=== PATIENT | male | born 1940 | race Caucasian/White ===

== ENCOUNTER 2017-02-18 16:50 | Inpatient (IN) | payer MEDICARE ==
[~2017-02-18] VITALS: Ht 177.8 cm; Wt 114.8 kg
[~2017-02-18 16:50] MED LIST: NORC10TA2 PO; RIVA10 PO; Z.0.WALKERFRONT
[2017-02-18 16:54] VITALS: BP 147/86; PULSE 62; RESP 17; TEMP 98.3; O2SAT 97
[2017-02-18] MEDS ORDERED: FURO20TA PO (17:18)
[2017-02-18] MEDS ORDERED: ASPI325T PO (17:18)
[2017-02-18] MEDS ORDERED: VENTAER INH (17:18)
[2017-02-18] MEDS ORDERED: SODIUM CHLOR 0.9% 1000 ML INJ 1,000 ML IV ONE (17:22)
[2017-02-18 17:24] VITALS: O2SAT 97
--- NOTE | 2017-02-18 17:29 | PD ---
HPI Chief Complaint: Dizziness Time Seen by Provider: 17:01 Travel History International Travel<30 days: No Contact w/Intl Traveler<30days: No Traveled to known affect area: No History of Present Illness HPI 76-year-old male came to the emergency room brought by his after he started experiencing some dizziness around 3 PM. He says he was watching television and got up to get some water when he felt very wobbly walking. His came around 4 PM and he continued to feel the same way and decided to come to the emergency room. Patient usually walks with a cane but he was having trouble walking with cane because of this. He felt like he was on a rocking boat. Patient did not have any syncopal episode or head injury. He has history of atrial fibrillation and takes 1 baby aspirin every day. No speech issue. [facility] Past Medical History Narrative Medical List of his past medical, surgical, social and family history was reviewed from the nursing note. Arthritis: No Asthma: No Autoimmune Disease: No Blood Disorders: No Anxiety: No Depression: No Heart Rhythm Problems: No Cancer: No Cardiovascular Problems: Yes (ARIAL FIBRILLATION) High Cholesterol: No Chemotherapy: No Chest Pain: No Congestive Heart Failure: No COPD: Yes Cerebrovascular Accident: No Diabetes: No Diminished Hearing: No Endocrine: No GERD: No Glaucoma: No Genitourinary: No Headaches: No Hepatitis: No Hiatal Hernia: No Hypertension: No Immune Disorder: No Kidney Stones: No Musculoskeletal: No Neurologic: Yes (CONCUSSIONS X 2 OCCURRED TEENAGER - NO RESIDUAL PROBLEMS) Psychiatric: No Reproductive: Yes (ENLARGED PROSTATE - ) Respiratory: Yes (COPD) Immunizations Current: Yes Migraines: No Myocardial Infarction: No Radiation Therapy: No Renal Failure: No Seizures: No Sickle Cell Disease: No Thyroid Disease: No Ulcer: No Tetanus Vaccination: < 5 Years Influenza Vaccination: Yes Past Surgical History Abdominal Surgery: No AICD: No Appendectomy: No Arteriovenous Shunt: No Body Medical Devices: NONE Cardiac Surgery: No Cholecystectomy: No Ear Surgery: No Endocrine Surgery: No Eye Surgery: Yes (LEWIS LASER TREATMENT FOR RETINOPATHY ) Genitourinary Surgery: No Gynecologic Surgery: No Insulin Pump: No Joint Replacement: No Oral Surgery: Yes (TONSILLECTOMY AGE 4 ) Pacemaker: No Thoracic Surgery: No Tonsillectomy: Yes Social History Alcohol Use: Yes (1-2 GLASSES PER DAY) Tobacco Use: No Substance Use: Yes (ETOH till 3 years ago) Allergies-Medications (Allergen,Severity, Reaction): Coded Allergies: No Known Allergies (Verified , 02/18/17) Comments No known drug allergies. Reported Meds & Prescriptions Reported Meds & Active Scripts Active Reported Ventolin Hfa 18 GM Inh (Albuterol Sulfate) 90 Mcg/Act Aer 2 Puff INH Q4-6H PRN Furosemide 20 Mg Tab 20 Mg PO DAILY Narrative Medication List of his home medications reviewed from the nursing note. Review of Systems Except as stated in HPI: all other systems reviewed are Neg Physical Exam Narrative GENERAL: Awake, alert, SKIN: Focused skin assessment warm/dry. HEAD: Atraumatic. Normocephalic. EYES: Pupils equal and round. No scleral icterus. No injection or drainage. ENT: No nasal bleeding or discharge. Mucous membranes pink and moist. NECK: Trachea midline. No JVD. CARDIOVASCULAR: Regular rate and rhythm. No murmur appreciated. RESPIRATORY: No accessory muscle use. Clear to auscultation. Breath sounds equal bilaterally. GASTROINTESTINAL: Abdomen soft, non-tender, nondistended. Hepatic and splenic margins not palpable. MUSCULOSKELETAL: No obvious deformities. No clubbing. No cyanosis. No edema. NEUROLOGICAL: Awake and alert. No obvious cranial nerve deficits. Normal speech. NIH stroke score of 2 based on the ataxia of the left upper and lower extremity. PSYCHIATRIC: Appropriate mood and affect; insight and judgment normal. Data Data Last Documented VS Vital Signs Date Time Temp Pulse Resp B/P Pulse Ox O2 Delivery O2 Flow Rate FiO2 02/18/17 17:39 16 96 Room Air 02/18/17 17:24 21 02/18/17 16:54 98.3 62 147/86 Orders Cath For Specimen (02/18/17 17:22) Neuro Checks Q2HX12,Q4H (02/18/17 17:22) Nursing Bedside Swallow Assess .ONCE (02/18/17 17:22) Diet Npo (02/18/17 Dinner) Prothrombin Time / Inr (Pt) (02/18/17 17:22) Act Partial Throm Time (Ptt) (02/18/17 17:22) Complete Blood Count With Diff (02/18/17 17:22) Basic Metabolic Panel (Bmp) (02/18/17 17:22) Fibrinogen (02/18/17 17:22) Creatine Kinase (Cpk) (02/18/17 17:22) Troponin I (02/18/17 17:22) Ua Includes Microscopic (02/18/17 17:22) Drug Screen, Random Urine (02/18/17 17:22) Type And Screen (02/18/17 17:22) Ct Brain W/O Iv Contrast(Rout) (02/18/17 ) Electrocardiogram (02/18/17 ) Consult Neurology (02/18/17 17:22) Sodium Chlor 0.9% 1000 Ml Inj (Ns 1000 M (02/18/17 17:22) Blood Glucose (02/18/17 17:22) Ecg Monitoring (02/18/17:22) Iv Access Insert/Monitor (02/18/17:) NPO (02/18/17 17:22) Oximetry (02/18/17 17:22) Oxygen Administration (02/18/17:) Resp Oxygen Alexander C Titrat 1-4 L (02/18/17 17:22) ^ Call Pharmacy (02/18/17 17:40) Nih Stroke Scale - Nihss .ONCE (02/18/17 17:40) Urinary Catheter Management EVA.Q8H (02/18/17 17:40) Urinary Catheter Insert/Apply (02/18/17 17:40) Anticoagulant Alert (02/18/17 17:40) ^ Post Infusion Restrictions (02/18/17 17:40) ^ Medication Alert (02/18/17 17:40) Vital Signs (Adult) .As directed (02/18/17 17:40) Notify Dr: Blood Pressure (02/18/17 17:40) ^ Medication Alert (02/18/17 17:40) Alteplase Bolus (Activase Bolus) (02/18/17 17:45) Alteplase Drip (Activase Drip) (02/18/17 17:45) Sodium Chloride 0.9% Inj (Ns Inj) (02/18/17 17:45) Misc Nursing Information (02/18/17 17:45) Resp Oxygen Alexander C Titrat 1-4 L (02/18/17 ) Lipid Profile (02/18/17 18:21) (Hub Use Only)Inp Phy Cons/Ref (02/18/17 ) Admit Order (Ed Use Only) (02/18/17 18:38) Us Carotid Arteries Comp Bilat (02/19/17 ) Labs Laboratory Tests Test 02/18/17 02/18/17 17:40 18:15 White Blood Count 6.1 TH/MM3 Red Blood Count 5.70 MIL/MM3 Hemoglobin 17.0 GM/DL Hematocrit 52.9 % Mean Corpuscular Volume 92.9 FL Mean Corpuscular Hemoglobin 29.8 PG Mean Corpuscular Hemoglobin 32.1 % Concent Red Cell Distribution Width 13.2 % Platelet Count 203 TH/MM3 Mean Platelet Volume 9.1 FL Neutrophils (%) (Auto) 46.9 % Lymphocytes (%) (Auto) 34.0 % Monocytes (%) (Auto) 15.0 % Eosinophils (%) (Auto) 3.3 % Basophils (%) (Auto) 0.8 % Neutrophils # (Auto) 2.9 TH/MM3 Lymphocytes # (Auto) 2.1 TH/MM3 Monocytes # (Auto) 0.9 TH/MM3 Eosinophils # (Auto) 0.2 TH/MM3 Basophils # (Auto) 0.0 TH/MM3 CBC Comment DIFF FINAL Differential Comment Prothrombin Time 11.2 SEC Prothromb Time International 1.0 RATIO Ratio Activated Partial 33.4 SEC Thromboplast Time Fibrinogen 383 mg/dL Sodium Level 143 MEQ/L Potassium Level 3.9 MEQ/L Chloride Level 108 MEQ/L Carbon Dioxide Level 25.9 MEQ/L Anion Gap 9 MEQ/L Blood Urea Nitrogen 15 MG/DL Creatinine 0.82 MG/DL Estimat Glomerular Filtration 92 ML/MIN Rate Random Glucose 98 MG/DL Calcium Level 8.4 MG/DL Total Creatine Kinase 272 U/L Troponin I LESS THAN 0.02 NG/ML Triglycerides Level 140 MG/DL Cholesterol Level 180 MG/DL LDL Cholesterol 115 MG/DL HDL Cholesterol 37.4 MG/DL Cholesterol/HDL Ratio 4.81 RATIO Blood Type O POSITIVE Antibody Screen NEGATIVE Urine Color YELLOW Urine Turbidity CLEAR Urine pH 5.5 Urine Specific [place] 1.010 Urine Protein NEG mg/dL Urine Glucose (UA) NEG mg/dL Urine Ketones NEG mg/dL Urine Occult Blood TRACE Urine Nitrite NEG Urine Bilirubin NEG Urine Leukocyte Esterase NEG Urine WBC 0-2 /hpf Urine Squamous Epithelial 0-5 /hpf Cells Microscopic Urinalysis Comment CATH-CULT NOT IND Urine Opiates Screen NEG Urine Barbiturates Screen NEG Urine Amphetamines Screen NEG Urine Benzodiazepines Screen NEG Urine Cocaine Screen NEG Urine Cannabinoids Screen NEG MDM Medical Decision Making Medical Screen Exam Complete: Yes Emergency Medical Condition: Yes Medical Record Reviewed: Yes Interpretation(s) Twelve-lead EKG was reviewed by me. Atrial fibrillation, right bundle branch block, bradycardia. Heart rate of 58 bpm. Differential Diagnosis CVA, intracranial bleed Narrative Course 6:06 PM given the time of onset and the symptoms I called a stroke alert. I discussed the case with Dr. Iqbal who is on-call for neurology. He agreed with the stroke alert and thought the patient would be a TPA candidate if the head CT was negative. Radiologist called me to let me note that head CT was negative for any head bleed. TPA order was put in. I discussed the risks and the benefits of TPA with the patient and he was agreeable to it. I went over at the check this for absolute contraindication and patient did not have any. Patient currently is getting TPA. Dr. Iqbal said he is on his way to come and see the patient. Waiting to talk to an assistant to the president for admission. Patient probably will require to be transferred to the [facility] hospital. 6:15 PM awaiting for the assistant to the president to call back. Patient will be transferred to the [facility] at the [facility]. 6:[address] Rodriguez accepted the case in the ICU. Critical Care Narrative Aggregate critical care time was 75 minutes. Time to perform other separately billable procedures was not included in the critical care time. My time did not include minutes spent treating any other patients simultaneously or on activities that did not directly contribute to the patient's treatment. The services I provided to this patient were to treat and/or prevent clinically significant deterioration that could result in: Acute CVA, TPA I provided critical care services requiring my management, as noted below: Chart data review, documentation time, medication orders and management, vital sign assessments/reviewing monitor data, ordering and reviewing lab tests, ordering and interpreting/reviewing x-rays and diagnostic studies, care of the patient and discussion of the patient with the admitting physicians. Procedures EKG Prior to Arrival: No Physician Communication Physician Communication Dr. Iqbal, Dr. Rodriguez Diagnosis Primary Impression: CVA (cerebral vascular accident) Qualified Code: I63.49 - Cerebrovascular accident (CVA) due to embolism of other cerebral artery Additional Impression: Chronic a-fib Admitting Information Admitting Physician Requests: Admit Scripts Apixaban (Eliquis)5 Mg Tab5 Mg PO BID #60 TAB Ref 0 Prov:Bennie London MD 02/20/17 Atorvastatin 20 Mg Tab20 Mg PO DAILY #30 TAB Ref 3 Prov:Bennie London MD 02/20/17 Bryce Keith MD Feb 18, 2017 17:29
[2017-02-18 17:39] VITALS: RESP 16; O2SAT 96
--- NOTE | 2017-02-18 17:43 | RADRPT ---
EXAM DATE/TIME: 02/18/2017 17:18 [place] COMPARISON: No previous studies available for comparison. INDICATIONS : Stroke alert. Ataxia on left side. RADIATION DOSE: 60.52 CTDIvol (mGy) This report was called by Rudolph Keith at 1740 MEDICAL HISTORY : Cardiovascular disease. Chronic obstructive pulmonary disease. SURGICAL HISTORY : None. ENCOUNTER: Initial ACUITY: 1 day PAIN SCALE: 0/10 LOCATION: Left cranial TECHNIQUE: Multiple contiguous axial images were obtained of the head. Using automated exposure control and adjustment of the mA and/or kV according to patient size, radiation dose was kept as low as reasonably achievable to obtain optimal diagnostic quality images. DICOM format image data is av ailable electronically for review and comparison. FINDINGS: CEREBRUM: The ventricles are normal for age. No evidence of midline shift, mass lesion, hemorrha ge or acute infarction. No extra-axial fluid collections are seen. POSTERIOR FOSSA: The cerebellum and brainstem are intact. The 4th ventricle is midline. The cer ebellopontine angle is unremarkable. EXTRACRANIAL: The visualized portion of the orbits is intact. SKULL: The calvaria is intact. No evidence of skull fracture. CONCLUSION: No evidence of acute infarct, hemorrhage, mass or edema. Andre Hahn MD on February 18, 2017 at 17:37 Board Certified Radiologist. This report was verified electronically.
[2017-02-18 17:45] LABS: AUTOMATED NEUTROPHIL # 2.9 TH/MM3 (1.8-7.7); BASOPHIL % 0.8 % (0.0-2.0); EOSINOPHIL # 0.2 TH/MM3 (0-0.4); EOSINOPHIL % 3.3 % (0.0-4.0); HEMATOCRIT 52.9 % (39.0-51.0); HEMO FLAGS DIFF FINAL; LYMPHOCYTE # 2.1 TH/MM3 (1.0-4.8); MEAN CELL VOLUME 92.9 FL (80.0-100.0); MEAN CORPUSCULAR HEMOGLOBIN 29.8 PG (27.0-34.0); MEAN CORPUSCULAR HGB CONC 32.1 % (32.0-36.0); NEUT % 46.9 % (16.0-70.0); PLATELET COUNT 203 TH/MM3 (150-450); RED CELL DISTRIBUTION WIDTH 13.2 % (11.6-17.2); WHITE BLOOD COUNT 6.1 TH/MM3 (4.0-11.0)
[2017-02-18] MEDS ORDERED: SODIUM CHLORIDE 0.9% 50 ML BAG IVF ONE (17:45)
[2017-02-18] MEDS ORDERED: ALTEPLASE BOLUS 9 MG/9 ML SYR IV ONE (17:45)
[2017-02-18] MEDS ORDERED: ALTEPLASE DRIP 81 MG in SYRINGE/BAG 1 EA IV ONE (17:45)
[2017-02-18] MEDS ORDERED: MISCELLANEOUS NURSING INFORMATION XX PRN (17:45)
[2017-02-18 17:52] LABS: CHLORIDE 108 MEQ/L (98-107); POTASSIUM 3.9 MEQ/L (3.5-5.1); SODIUM (NA) 143 MEQ/L (136-145)
[2017-02-18 17:55] LABS: ANION GAP 9 MEQ/L (5-15); BICARBONATE 25.9 MEQ/L (21.0-32.0)
[2017-02-18 17:56] LABS: BLOOD UREA NITROGEN 15 MG/DL (7-18)
[2017-02-18 17:58] LABS: APTT (PATIENT) 33.4 SEC (24.3-30.1); PROTHROMBIN TIME - PATIENT 11.2 SEC (9.8-11.6)
[2017-02-18 17:59] LABS: GLOMERULAR FILTRATION RATE 92 ML/MIN (>89)
[2017-02-18 18:02] LABS: CREATINE KINASE 272 U/L (39-308)
--- NOTE | 2017-02-18 18:52 | MB ---
cc: LUTHER TATUM DATE OF CONSULTATION 02/18/17 REASON FOR CONSULTATION Stroke alert HISTORY OF PRESENT ILLNESS Mr. Zamora is a very nice 76-year-old man who has a history of atrial fibrillation. He was in his usual state of health until around 03:00 p.m. when he suddenly developed severe dizziness. He also had difficulty with control of the left side. He came to the ER and a stroke alert was called. He was found to have dysmetria in the left upper extremity as well as the left lower extremity with clumsiness and difficulty controlling those extremities. He had no speech change or other symptoms. PAST MEDICAL HISTORY 1. History of atrial fibrillation. No prior history of stroke. 2. History of concussion in the past as a teenager with no residual difficulty. 3. Prostatic enlargement 4. COPD 5. Laser treatment for retinopathy 6. Tonsillectomy. MEDICATIONS 1. Ventolin inhaler 2. Aspirin 325 mg which he tries to take every day but misses days. 3. Lasix 20 mg daily. ALLERGIES None known. SOCIAL HISTORY He drinks 1-2 glasses of alcoholic drinks per day and does not smoke. NEUROLOGIC EXAMINATION VITAL SIGNS: Blood pressure 147/86, pulse is 62, respiratory rate is 17, temperature 98 degrees. Higher cortical functions are normal including speech. Cranial nerves intact. There is no facial droop. The extraocular movements are intact. There is no nystagmus. Pupils equal, reactive. On motor exam he has mild weakness of the left gift consultant at 4/5 with 5/5 proximal strength. He has mild weakness proximally in the left leg at 4/5 with 5/5 in the right. Distal strength in the left leg is 5/5. Sensory exam is normal. ___ testing shows very mild dysmetria left upper extremity and mild dysmetria left lower extremity. Reflexes are symmetric with no Babinski. IMAGING STUDIES CT of the brain is within normal limits. No hemorrhage is identified. LABORATORY DATA White count 6100, hemoglobin 17, hematocrit 52.9%, platelet count 203,000. Sodium 143, potassium 3.9, chloride 108, CO2 25.9, BUN is 15, creatinine 0.82, GFR is 92, glucose 98, PT 11.2, INR one, APTT 33.4. IMPRESSION Acute stroke. Suspect probably cerebellar given his symptoms. I discussed the case with Dr. Keith over the phone and did recommend TPA which he is currently receiving according to protocol. His NIH stroke scale was a six. Because of the relative low NIH stroke scale. He is not a candidate for evaluation for interventional therapy. We will evaluate him further with an MRI MRA of the brain, carotid ultrasound, echocardiogram. Follow the post TPA protocol as well. No blood thinners for 24 hours. After that, we will repeat the CT of the brain. If stable, we will need to consider long-term anticoagulant therapy for his atrial fibrillation. Thank you for asking me to see this patient in consultation. MD MAYDA Rod/ /6:25 PM /6:31 PM
[2017-02-18 19:00] VITALS: BP 151/75; PULSE 59; RESP 16; TEMP 97.7; O2SAT 98
[2017-02-18 19:11] LABS: BLOOD, URINE TRACE (NEG); GLUCOSE,URINE NEG (NEG); KETONE, URINE NEG (NEG); NITRITE,URINE NEG (NEG); PH, URINE 5.5 (5.0-8.5)
[2017-02-18 19:20] LABS: COMMENT (UR) CATH-CULT NOT IND; SQUAMOUS EPITHELIAL CELL URINE 0-5 /hpf (0-5); URINE COLOR YELLOW (YELLW/STRAW); WBC, URINE 0-2 /hpf (0-5)
[2017-02-18 19:28] LABS: AMPHETAMINE, URINE NEG (NEG); BARBITURATES, URINE NEG (NEG)
[2017-02-18 19:32] LABS: COCAINE, URINE NEG (NEG)
[2017-02-18 20:40] LABS: HDL CHOLESTEROL 37.4 MG/DL (40.0-60.0)
[2017-02-18 22:00] VITALS: BP 167/87; TEMP 98.4
[2017-02-18 22:30] VITALS: PULSE 64
[2017-02-18] MEDS ORDERED: RESP: ALBUTEROL 2.5 MG/IPRATROPIUM 0.5 MG NEB (PRN) INH (23:15)
[2017-02-18] MEDS ORDERED: MAGNESIUM HYDROXIDE SUSP 30 ML CUP PO PRN (23:15)
[2017-02-18] MEDS ORDERED: BISACODYL 10 MG SUPP RECTAL PRN (23:15)
[2017-02-18] MEDS ORDERED: hydrALAZINE HCL 20 MG/ML VIAL IV PUSH PRN (23:15)
[2017-02-18] MEDS ORDERED: LACTULOSE SYRUP 20 GM/30 ML CUP PO PRN (23:15)
[2017-02-18] MEDS ORDERED: SENNOSIDES 8.6 MG TAB PO PRN (23:15)
[2017-02-18] MEDS ORDERED: CHLORHEXIDINE GLUCONATE 2 % 1 PACK (2 CLOTHS) TOP PRN (23:15)
[2017-02-18] MEDS ORDERED: LABETALOL HCL 100 MG/20 ML VIAL IV PUSH PRN (23:15)
[2017-02-18] MEDS ORDERED: SODIUM CHLORIDE 0.9% FLUSH 10 ML FLUSH PRN (23:15)
[2017-02-18] MEDS ORDERED: ONDANSETRON HCL 4 MG/2 ML VIAL IV PRN (23:15)
[2017-02-18] MEDS ORDERED: MISCELLANEOUS NURSING INFORMATION XX SCH (23:15)
--- NOTE | 2017-02-18 23:31 | HHI.HP ---
[facility] Service Critical Care Medicine Primary Care Physician Mazin Vega MD Admission Diagnosis CVA Diagnosis: Travel History International Travel<30 Days: No Contact w/Intl Traveler <30 Da: No Traveled to Known Affected Are: No History of Present Illness Mr. Zamora is a very nice 76-year-old man who has a history of atrial fibrillation. He was in his usual state of health until around 03:00 p.m. when he suddenly developed severe dizziness. He also had difficulty with control of the left side. He came to the ER and a stroke alert was called. He was found to have dysmetria in the left upper extremity as well as the left lower extremity with clumsiness and difficulty controlling those extremities. He had no speech change or other symptoms. Review of Systems Constitutional: COMPLAINS OF: Dizziness, DENIES: Diaphoretic episodes, Fatigue , Fever, Weight gain, Weight loss, Chills, Change in appetite, Night Sweats Endocrine: DENIES: Heat/cold intolerance, Polydipsia, Polyuria, Polyphagia Eyes: DENIES: Blurred vision, Diplopia, Eye inflammation, Eye pain, Vision loss , Photosensitivity, Double Vision Ears, nose, mouth, throat: DENIES: Tinnitus, Hearing loss, Vertigo, Nasal discharge, Oral lesions, Throat pain, Hoarseness, Ear Pain, Running Nose, Epistaxis, Sinus Pain, Toothache, Odynophagia Respiratory: DENIES: Apneas, Cough, Snoring, Wheezing, Hemoptysis, Sputum production, Shortness of breath Cardiovascular: DENIES: Chest pain, Palpitations, Syncope, Dyspnea on Exertion , PND, Lower Extremity Edema, Orthopnea, Claudication Gastrointestinal: DENIES: Abdominal pain, Black stools, Bloody stools, Constipation, Diarrhea, Nausea, Vomiting, Difficulty Swallowing, Anorexia Genitourinary: DENIES: Sexual dysfunction, Urinary frequency, Urinary incontinence, Urgency, Hematuria, Dysuria, Nocturia, Penile Discharge, Testicular Pain, Testicular Swelling Musculoskeletal: DENIES: Joint pain, Muscle aches, Stiffness, Joint Swelling, Back pain, Neck pain Integumentary: DENIES: Abnormal pigmentation, Nail changes, Pruritus, Rash Hematologic/lymphatic: DENIES: Bruising, Lymphadenopathy Immunologic/allergic: DENIES: Eczema, Urticaria Neurologic: COMPLAINS OF: Abnormal gait, Localized weakness, DENIES: Headache , Paresthesias, Seizures, Speech Problems, Tremor, Poor Balance Psychiatric: DENIES: Anxiety, Confusion, Mood changes, Depression, Hallucinations, Agitation, Suicidal Ideation, Homicidal Ideation, Delusions Past Family Social History Allergies: Coded Allergies: No Known Allergies (Verified , 02/18/17) Past Medical History 1. History of atrial fibrillation. No prior history of stroke. 2. History of concussion in the past as a teenager with no residual difficulty. 3. Prostatic enlargement 4. COPD 5. Laser treatment for retinopathy 6. Tonsillectomy. Past Surgical History Tonsillectomy. Laser treatment for retinopathy. Reported Medications Reported Meds & Active Scripts Active Reported Ventolin Hfa 18 GM Inh (Albuterol Sulfate) 90 Mcg/Act Aer 2 Puff INH Q4-6H PRN Aspirin 325 Mg Tab 325 Mg PO DAILY Furosemide 20 Mg Tab 20 Mg PO DAILY Active Ordered Medications Current Medications Medications (Trade) Dose Ordered Sig/Mily Route PRN Reason Start Time Stop Time Status Last Admin Dose Admin Miscellaneous Information No Heparin, Warfarin, Aspir... UNSCH PRN XX SEE DOSE INSTRUCTIONS 02/18/17 17:45 02/19/17 17:44 Labetalol HCl (Trandate Inj) 10 mg Q4H PRN IV PUSH SBP> OR = 180, DBP> OR = 100 02/18/17 23:15 Hydralazine HCl (Apresoline Inj) 20 mg Q4H PRN IV PUSH SBP> OR = 180, DBP> OR = 100 02/18/17 23:15 Aspirin 325 mg 325 mg DAILY@20 PO 02/19/17 20:00 Sodium Chloride (NS 1000 ml Inj) 1,000 ml @ 84 mls/hr [id number] IV 02/18/17 23:12 02/19/17 03:53 Sodium Chloride (NS Flush) 2 ml UNSCH PRN .XX FLUSH AFTER USING IV ACCESS 02/18/17 23:15 Sodium Chloride (NS Flush) 2 ml BID .XX 02/19/17 09:00 Acetaminophen (Tylenol) 650 mg Q6H PRN PO PAIN 1-10 AND/OR FEVER >101F 02/18/17 23:15 Famotidine (Pepcid Inj) 20 mg Q12HR IV PUSH 02/19/17 09:00 Ondansetron HCl (Zofran Inj) 4 mg Q6H PRN IV NAUSEA OR VOMITING 02/18/17 23:15 Heparin Sodium (Porcine) (Heparin Inj) 5,000 units Q8H SQ 02/19/17 20:00 Miscellaneous Information 1 [id number] XX 02/18/17 23:15 Chlorhexidine Gluconate (Chlorhexidine 2% Cloth) 3 pack Taper DAILY@04 TOP 02/19/17 04:00 02/15/18 03:59 02/19/17 03:53 Chlorhexidine Gluconate (Chlorhexidine 2% Cloth) 3 pack UNSCH PRN TOP HYGIENIC CARE 02/18/17 23:15 Senna/Docusate Sodium (Omayra-Colace) 1 tab BID PO 02/19/17 09:00 Magnesium Hydroxide (Milk Of Magnesia Liq) 30 ml Q12H PRN PO MILD - MODERATE CONSTIPATION 02/18/17 23:15 Sennosides (Senokot) 17.2 mg Q12H PRN PO MODERATE - SEVERE CONSTIPATION 02/18/17 23:15 Bisacodyl (Dulcolax Supp) 10 mg DAILY PRN RECTAL SEVERE CONSITIPATION 02/18/17 23:15 Lactulose (Lactulose Liq) 30 ml DAILY PRN PO SEVERE CONSITIPATION 02/18/17 23:15 Pneumococcal Polyvalent Vaccine (Pneumovax-23 Inj) 25 mcg ONCE ONCE IM 02/19/17 10:00 02/19/17 10:01 Family History No family history of early cardiac disease stroke or cancer Social History Drinks socially, no tobacco or illicit drug abuse Physical Exam Vital Signs Vital Signs Date Time Temp Pulse Resp B/P Pulse Ox O2 Delivery O2 Flow Rate FiO2 02/18/17 22:00 98.4 64 16 167/87 96 02/18/17 19:00 97.7 59 16 151/75 98 Room Air 02/18/17 19:00 59 16 98 Room Air 02/18/17 17:39 16 96 Room Air 02/18/17 17:39 96 Room Air 02/18/17 17:24 97 21 02/18/17 16:54 98.3 62 17 147/86 97 Physical Exam GENERAL: Well-nourished, well-developed patient. SKIN: Warm and dry. HEAD: Normocephalic. EYES: No scleral icterus. No injection or drainage. NECK: Supple, trachea midline. No JVD or lymphadenopathy. CARDIOVASCULAR: Regular rate and rhythm without murmurs, gallops, or rubs. RESPIRATORY: Breath sounds equal bilaterally. No accessory muscle use. GASTROINTESTINAL: Abdomen soft, non-tender, nondistended. MUSCULOSKELETAL: No cyanosis, or edema. BACK: Nontender without obvious deformity. No CVA tenderness. EXTREMITIES: Mild weakness of the left battery loader at 4/5 with 5/5 proximal strength. He has mild weakness proximally in the left leg at 4/5 with 5/5 in the right. Distal strength in the left leg is 5/5 Laboratory Laboratory Tests Test 02/18/17 02/18/17 17:40 18:15 White Blood Count 6.1 Red Blood Count 5.70 Hemoglobin 17.0 Hematocrit 52.9 Mean Corpuscular Volume 92.9 Mean Corpuscular Hemoglobin 29.8 Mean Corpuscular Hemoglobin 32.1 Concent Red Cell Distribution Width 13.2 Platelet Count 203 Mean Platelet Volume 9.1 Neutrophils (%) (Auto) 46.9 Lymphocytes (%) (Auto) 34.0 Monocytes (%) (Auto) 15.0 Eosinophils (%) (Auto) 3.3 Basophils (%) (Auto) 0.8 Neutrophils # (Auto) 2.9 Lymphocytes # (Auto) 2.1 Monocytes # (Auto) 0.9 Eosinophils # (Auto) 0.2 Basophils # (Auto) 0.0 CBC Comment DIFF FINAL Differential Comment Prothrombin Time 11.2 Prothromb Time International 1.0 Ratio Activated Partial 33.4 Thromboplast Time Fibrinogen 383 Sodium Level 143 Potassium Level 3.9 Chloride Level 108 Carbon Dioxide Level 25.9 Anion Gap 9 Blood Urea Nitrogen 15 Creatinine 0.82 Estimat Glomerular Filtration 92 Rate Random Glucose 98 Calcium Level 8.4 Total Creatine Kinase 272 Troponin I LESS THAN 0.02 Triglycerides Level 140 Cholesterol Level 180 LDL Cholesterol 115 HDL Cholesterol 37.4 Cholesterol/HDL Ratio 4.81 Blood Type O POSITIVE Antibody Screen NEGATIVE Urine Color YELLOW Urine Turbidity CLEAR Urine pH 5.5 Urine Specific [place] 1.010 Urine Protein NEG Urine Glucose (UA) NEG Urine Ketones NEG Urine Occult Blood TRACE Urine Nitrite NEG Urine Bilirubin NEG Urine Leukocyte Esterase NEG Urine WBC 0-2 Urine Squamous Epithelial 0-5 Cells Microscopic Urinalysis Comment CATH-CULT NOT IND Urine Opiates Screen NEG Urine Barbiturates Screen NEG Urine Amphetamines Screen NEG Urine Benzodiazepines Screen NEG Urine Cocaine Screen NEG Urine Cannabinoids Screen NEG Result Diagram: 02/18/17 0093 02/18/17 1740 Assessment and Plan Assessment and Plan Acute CVA - Status post TPA administration - Neuro checks per ICU protocol - Repeat CT if neuro changes - Management per neurologist Dyslipidemia - Atorvastatin COPD - No exacerbation - No indication for steroids - DuoNeb's when necessary DVT GI prophylaxis - Teds SCDs - Heparin subcutaneous to start 24 hours after TPA administration Critical Care: The total critical care time was 35 minutes. Time to perform other separately billable procedures was not included in the critical care time. Giles Rodriguez MD Feb 18, 2017 23:31
[2017-02-19] VITALS (14 sets, daily range): BP systolic 51–150; BP diastolic 68–137; PULSE 54–75; RESP 19–26; TEMP 97.4–98.5; O2SAT 94–97
[2017-02-19] MEDS: CHLORHEXIDINE GLUCONATE 2 % 1 PACK (2 CLOTHS) TOP SCH (03:53)
[2017-02-19] MEDS: SODIUM CHLOR 0.9% 1000 ML INJ 1,000 ML IV SCH ×3 (03:53→20:11)
--- NOTE | 2017-02-19 05:06 | EKG ---
Date Performed: 02/18/2017 Time Performed: 17:41:03 PTAGE: 76 years EKG: ATRIAL FIBRILLATION WITH SLOW VENTRICULAR RESPONSE RIGHT BUNDLE BRANCH BLOCK ABNORMAL ECG N O SIGNIFICANT CHANGE FROM PRIOR ELECTROCARDIOGRAM. PREVIOUS TRACING : 04/05/2015 08.57 DOCTOR: Toi Mcintosh Interpretating Date/Time 02/19/2017 05:05:33
[2017-02-19] MEDS: ACETAMINOPHEN 325 MG TAB PO PRN ×2 (06:00→20:32)
[2017-02-19] MEDS: FAMOTIDINE 20 MG/2 ML VIAL IV PUSH SCH ×2 (09:28→20:10)
[2017-02-19] MEDS: DOCUSATE SODIUM 50 MG/SENNA 8.6 MG TAB PO SCH ×2 (09:28→20:10)
[2017-02-19] MEDS: SODIUM CHLORIDE 0.9% FLUSH 10 ML FLUSH SCH ×2 (09:29→20:11)
--- NOTE | 2017-02-19 09:59 | RADRPT ---
EXAM DATE/TIME: 02/19/2017 08:26 [facility] COMPARISON: No previous studies available for comparison. INDICATIONS : Cerebrovascular accident. MEDICAL HISTORY : Concussions. Weakness. Afib. COPD. Enlarged prostate. Gait problems. Subsatnce use. SURGICAL HISTORY : Tonsillectomy. Bilateral laser eye treatment for retinopathy. Left hip repair. ENCOUNTER: Initial ACUITY: 1 day PAIN SCORE: 0/10 LOCATION: Bilateral neck PEAK SYSTOLIC VELOCITIES (cm/sec): ICA/CCA RATIO: Right: 0.9 Left: 1.1 ICA: Right: 84.6 Left: 93.6 CCA: Right: 93.5 Left: 83.9 ECA: Right: 111.3 Left: 137.7 VERTEBRAL: Right: 54.8 antegrade Left: 43.6 antegrade Elevated flow velocities and ICA/CCA ratios have been found to correlate with increased degrees of vessel stenosis, calculated as percentage of diameter relative to a normal segment of distal ICA/CCA FINDINGS: RIGHT CAROTID: No significant stenosis is visualized. The waveforms are within normal limits. LEFT CAROTID: No significant stenosis is visualized. The waveforms are within normal limits. VERTEBRAL ARTERIES: Antegrade flow is seen in both vertebral arteries. MISCELLANEOUS: None. CONCLUSION: No evidence of flow-limiting carotid stenosis. Arnie Brand MD on February 19, 2017 at 9:56 Board Certified Radiologist. This report was verified electronically.
[2017-02-19] MEDS ORDERED: PNEUMOCOCCAL POLYVALENT INJ 25 MCG/0.5 ML SYR IM ONE (10:00)
--- NOTE | 2017-02-19 10:10 | HHI.PR ---
Subjective Remarks neuro deficits resolved feels great. Objective Vitals nad no carotid bruits heart irreg lung cta abd s/nt ext no edema 5/5 strength. no clonus or babinski cn intact. Vital Signs Date Time Temp Pulse Resp B/P Pulse Ox O2 Delivery O2 Flow Rate FiO2 02/19/17 08:03 96 21 02/19/17 08:00 97.8 65 20 146/74 96 02/19/17 08:00 65 02/19/17 07:00 Room Air 02/19/17 06:00 65 02/19/17 04:00 98.0 62 19 51/137 96 02/19/17 04:00 64 02/19/17 02:00 70 02/19/17 00:00 98.4 66 22 150/74 94 02/19/17 00:00 97.4 66 22 150/74 94 02/19/17 00:00 75 02/18/17 23:30 Room Air 02/18/17 22:30 64 02/18/17 22:00 98.4 64 16 167/87 96 02/18/17 19:00 97.7 59 16 151/75 98 Room Air 02/18/17 19:00 59 16 98 Room Air 02/18/17 17:39 16 96 Room Air 02/18/17 17:39 96 Room Air 02/18/17 17:24 97 21 02/18/17 16:54 98.3 62 17 147/86 97 02/18/17 02/18/17 02/19/17 15:00 23:00 07:00 Intake Total 782 ml Output Total 525 ml 650 ml Balance -525 ml 132 ml Intake Oral 10 ml IV Total 772 ml Output Urine Total 525 ml 650 ml # Voids 0 # Bowel Movements 0 Result Diagram: 02/18/17 1740 02/18/17 1740 A/P Problem List: (1) CVA (cerebral vascular accident) Status: Acute Plan: Pt presented with acute cva and left ue/le deficits s/p tpa and resolution of sx's felt to be embolic cva from afib mri/a pending. cancel repeat ct as he is going for mri echo telemetry complete tpa protocol. d/c william later PT eval. oob later today. neuro following..will start anticoagulation when ok start diet. Problem Qualifiers (1) CVA (cerebral vascular accident): Qualified Code: I63.49 - Cerebrovascular accident (CVA) due to embolism of other cerebral artery Bennie London MD Feb 19, 2017 10:10
--- NOTE | 2017-02-19 12:52 | ECHRPT ---
Indication: cva/tia CONCLUSIONS There is no pericardial effusion. The left ventricle is not well visualized. Normal left ventricular size. The left ventricular systolic function is hyperdynamic with an estimated ejection fraction in the ra nge of 65- 70%. The inferior vena cava is mildly dilated. There is no pericardial effusion. BP: 137 / 64 HR: 64 Rhythm: MEASUREMENTS (Male / Female) Normal Values Technical Quality:Very technically difficult study 2D ECHO LV Diastolic Diameter PLAX 4.4 cm 4.2 - 5.9 / 3.9 - 5.3 cm LV Systolic Diameter PLAX 3.1 cm IVS Diastolic Thickness 0.9 cm 0.6 - 1.0 / 0.6 - 0.9 cm LVPW Diastolic Thickness 1.1 cm 0.6 - 1.0 / 0.6 - 0.9 cm LV Relative Wall Thickness 0.5 FINDINGS LEFT VENTRICLE The left ventricle is not well visualized. Normal left ventricular size. The left ventricular systolic function is hyperdynamic with an estimated ejection fraction in the ra nge of 65- 70%. LEFT ATRIUM The left atrial size is normal. RIGHT ATRIUM The right atrial size is normal. MITRAL VALVE Structurally normal mitral valve. No mitral valve stenosis or regurgitation. AORTIC VALVE Trileaflet aortic valve. No aortic valve stenosis or regurgitation. TRICUSPID VALVE Structurally normal tricuspid valve. No tricuspid valve stenosis or regurgitation. VESSELS The inferior vena cava is mildly dilated. PERICARDIUM There is no pericardial effusion. Joe Belcher MD (Electronically Signed) Final Date:19 February 2017 12:50 Amended: 19 February 2017 12:55
--- NOTE | 2017-02-19 15:38 | HHI.PR ---
Review/Management Diagnosis cva---improved after iv TPA history of atrial fibrillation elevated LDL Plan CT brain this pm 24 hour post TPA. If no hemorrhage, recommend starting anticoagulation due to history of afib. Consider eliquis Diagnosis/Plan: Subjective Subjective Comments No acute events reported He states he feels back to normal. Denies vertigo or weakness or clumsiness on the left side Active Medications Current Medications Medications (Trade) Dose Ordered Sig/Mily Route Start Time Stop Time Status Last Admin Miscellaneous Information No Heparin, Warfarin, Aspir... UNSCH PRN XX 02/18/17 17:45 02/19/17 17:44 (Trandate Inj) 10 mg Q4H PRN IV PUSH 02/18/17 23:15 (Apresoline Inj) 20 mg Q4H PRN IV PUSH 02/18/17 23:15 Aspirin 325 mg 325 mg DAILY@20 PO 02/19/17 20:00 (NS 1000 ml Inj) 1,000 ml @ 84 mls/hr [id number] IV 02/18/17 23:12 02/19/17 03:53 (NS Flush) 2 ml UNSCH PRN .XX 02/18/17 23:15 (NS Flush) 2 ml BID .XX 02/19/17 09:00 02/19/17 09:29 (Tylenol) 650 mg Q6H PRN PO 02/18/17 23:15 02/19/17 06:00 (Pepcid Inj) 20 mg Q12HR IV PUSH 02/19/17 09:00 02/19/17 09:28 (Zofran Inj) 4 mg Q6H PRN IV 02/18/17 23:15 (Heparin Inj) 5,000 units Q8H SQ 02/19/17 20:00 Miscellaneous Information 1 [id number] XX 02/18/17 23:15 (Chlorhexidine 2% Cloth) 3 pack Taper DAILY@04 TOP 02/19/17 04:00 02/15/18 03:59 02/19/17 03:53 (Chlorhexidine 2% Cloth) 3 pack UNSCH PRN TOP 02/18/17 23:15 (Omayra-Colace) 1 tab BID PO 02/19/17 09:00 02/19/17 09:28 (Milk Of Magnesia Liq) 30 ml Q12H PRN PO 02/18/17 23:15 (Senokot) 17.2 mg Q12H PRN PO 02/18/17 23:15 (Dulcolax Supp) 10 mg DAILY PRN RECTAL 02/18/17 23:15 (Lactulose Liq) 30 ml DAILY PRN PO 02/18/17 23:15 Allergies Allergies Coded Allergies No Known Allergies (Verified02/18/17) Exam I&O / VS 02/18/17 02/18/17 02/19/17 15:00 23:00 07:00 Intake Total 782 ml Output Total 525 ml 650 ml Balance -525 ml 132 ml Intake Oral 10 ml IV Total 772 ml Output Urine Total 525 ml 650 ml # Voids 0 # Bowel Movements 0 Vital Signs Date Time Temp Pulse Resp B/P Pulse Ox O2 Delivery O2 Flow Rate FiO2 02/19/17 14:00 54 02/19/17 12:00 57 02/19/17 12:00 98.0 57 26 137/68 94 02/19/17 10:00 56 02/19/17 08:03 96 21 02/19/17 08:00 97.8 65 20 146/74 96 02/19/17 08:00 65 02/19/17 07:00 Room Air 02/19/17 06:00 65 02/19/17 04:00 98.0 62 19 51/137 96 02/19/17 04:00 64 02/19/17 02:00 70 02/19/17 00:00 98.4 66 22 150/74 94 02/19/17 00:00 97.4 66 22 150/74 94 02/19/17 00:00 75 02/18/17 23:30 Room Air 02/18/17 22:30 64 02/18/17 22:00 98.4 64 16 167/87 96 02/18/17 19:00 97.7 59 16 151/75 98 Room Air 02/18/17 19:00 59 16 98 Room Air 02/18/17 17:39 16 96 Room Air 02/18/17 17:39 96 Room Air 02/18/17 17:24 97 21 02/18/17 16:54 98.3 62 17 147/86 97 Exam Comments alert, speech normal CN 2-12 normal MOTOR--5/5 BUE and BLE cerebellar--no dysmetria UE or LE Objective Micro and Labs Laboratory Tests Test 02/18/17 02/18/17 02/19/17 17:40 18:15 10:51 White Blood Count 6.1 Red Blood Count 5.70 Hemoglobin 17.0 Hematocrit 52.9 Mean Corpuscular Volume 92.9 Mean Corpuscular Hemoglobin 29.8 Mean Corpuscular Hemoglobin 32.1 Concent Red Cell Distribution Width 13.2 Platelet Count 203 Mean Platelet Volume 9.1 Neutrophils (%) (Auto) 46.9 Lymphocytes (%) (Auto) 34.0 Monocytes (%) (Auto) 15.0 Eosinophils (%) (Auto) 3.3 Basophils (%) (Auto) 0.8 Neutrophils # (Auto) 2.9 Lymphocytes # (Auto) 2.1 Monocytes # (Auto) 0.9 Eosinophils # (Auto) 0.2 Basophils # (Auto) 0.0 CBC Comment DIFF FINAL Differential Comment Prothrombin Time 11.2 Prothromb Time International 1.0 Ratio Activated Partial 33.4 Thromboplast Time Fibrinogen 383 Sodium Level 143 Potassium Level 3.9 Chloride Level 108 Carbon Dioxide Level 25.9 Anion Gap 9 Blood Urea Nitrogen 15 Creatinine 0.82 Estimat Glomerular Filtration 92 Rate Random Glucose 98 Calcium Level 8.4 Total Creatine Kinase 272 Troponin I LESS THAN 0.02 Triglycerides Level 140 Cholesterol Level 180 LDL Cholesterol 115 HDL Cholesterol 37.4 Cholesterol/HDL Ratio 4.81 Blood Type O POSITIVE Antibody Screen NEGATIVE Urine Color YELLOW Urine Turbidity CLEAR Urine pH 5.5 Urine Specific [place] 1.010 Urine Protein NEG Urine Glucose (UA) NEG Urine Ketones NEG Urine Occult Blood TRACE Urine Nitrite NEG Urine Bilirubin NEG Urine Leukocyte Esterase NEG Urine WBC 0-2 Urine Squamous Epithelial 0-5 Cells Microscopic Urinalysis Comment CATH-CULT NOT IND Urine Opiates Screen NEG Urine Barbiturates Screen NEG Urine Amphetamines Screen NEG Urine Benzodiazepines Screen NEG Urine Cocaine Screen NEG Urine Cannabinoids Screen NEG Nasal Screen MRSA (PCR) MRSA NOT DETECTED Diagnostic Tests ECHO--EF 65-70%. carotid US--no significant stenosis Mazin Iqbal PhD Feb 19, 2017 15:38
[2017-02-19] MEDS ORDERED: GADODIAMIDE PF 287 MG/ML 20 ML VIAL (for RAD MRI) IV ONE (19:14)
[2017-02-19] MEDS ORDERED: HEPARIN SODIUM - SQ 10,000 UNITS/ML VIAL SQ SCH (20:00)
[2017-02-19] MEDS ORDERED: ASPIRIN 325 MG TAB PO SCH (20:00)
--- NOTE | 2017-02-19 20:35 | RADRPT ---
EXAM DATE/TIME: 02/19/2017 19:03 [facility] COMPARISON: CT BRAIN W/O CONTRAST, February 18, 2017, 17:18. INDICATIONS : CVA. Post TPA. CONTRAST: 20 cc Omniscan (gadodiamide) IV MEDICAL HISTORY : Chronic obstructive pulmonary disease. A-fib. SURGICAL HISTORY : Tonsillectomy. Hip replacement. ENCOUNTER: Subsequent ACUITY: 3 day PAIN SCORE: 3/10 LOCATION: cranial TECHNIQUE: Multiplanar, multisequence MRI of the brain was performed both prior to and following the administrat ion of paramagnetic contrast. FINDINGS: CEREBRUM: The ventricles are normal for age. No evidence of midline shift, mass lesion, hemorrhage or acute in farction. No extraaxial fluid collections are seen. The pituitary gland and suprasellar cistern are normal in configuration. WHITE MATTER: On the flair weighted images there is mild increased signal in the centrum semiovale and periventricu lar white matter characteristic of chronic small vessel ischemic change. POSTERIOR FOSSA: The cerebellum and brainstem are intact. The 4th ventricle is midline. The cerebellopontine angle is unremarkable. The cerebellar tonsils are normal in position. DIFFUSION IMAGING: No focal areas of restricted diffusion are seen. No evidence of acute infarction. EXTRACRANIAL: The visualized portions of the orbits are unremarkable. There is mild mucosal thickening in the paran chris sinuses. There is a small lipoma over the right parietal bone. POST-CONTRAST: No abnormal areas of parenchymal or dural enhancement. No evidence of blood-brain barrier breakdown. CONCLUSION: 1. No acute hemorrhage, mass or evidence of infarction. 2. Mild atrophy and chronic small vessel ischemic change. 3. 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 Kev Mckee MD on February 19, 2017 at 20:28 Board Certified Radiologist. This report was verified electronically.
--- NOTE | 2017-02-19 20:36 | RADRPT ---
EXAM DATE/TIME: 02/19/2017 19:03 1 [facility] COMPARISON: No previous studies available for comparison. INDICATIONS : CVA. Post TPA. MEDICAL HISTORY : Chronic obstructive pulmonary disease. A-fib. SURGICAL HISTORY : Tonsillectomy. Hip replacement. ENCOUNTER: Subsequent ACUITY: 3 day PAIN SCORE: 3/10 LOCATION: cranial Please note a normal MRA of the brain does not entirely exclude the possibility of a small aneurysm, nor the possibility of distal intracranial vessel disease. TECHNIQUE: 3D time of flight MRA was performed. Source images, multiplanar STS MIP, and 3D volume MIP reconstru ctions were reviewed. FINDINGS: There is excellent visualization of the major intracranial arteries out to the second-order branch ve ssels. There is no evidence for aneurysm, vessel truncation or stenosis, and no evidence for vascula r malformation. There is a hypoplastic left A1 segment. CONCLUSION: 1. No evidence of aneurysm or stenosis. 2. Hypoplastic left A1 segment which is a normal variant. Kev Mckee MD on February 19, 2017 at 20:33 Board Certified Radiologist. This report was verified electronically.
[2017-02-19 22:36] LABS: BASOPHIL % 0.4 % (0.0-2.0); EOSINOPHIL # 0.2 TH/MM3 (0-0.4); HEMATOCRIT 52.6 % (39.0-51.0); HEMO FLAGS DIFF FINAL; LYMPH % 27.5 % (9.0-44.0); LYMPHOCYTE # 2.4 TH/MM3 (1.0-4.8); MEAN CELL VOLUME 92.5 FL (80.0-100.0); MEAN CORPUSCULAR HEMOGLOBIN 30.9 PG (27.0-34.0); MEAN CORPUSCULAR HGB CONC 33.4 % (32.0-36.0); MONO % 14.2 % (0.0-8.0); NEUT % 55.9 % (16.0-70.0); PLATELET COUNT 204 TH/MM3 (150-450); RED BLOOD COUNT 5.68 MIL/MM3 (4.50-5.90); RED CELL DISTRIBUTION WIDTH 13.6 % (11.6-17.2); WHITE BLOOD COUNT 8.9 TH/MM3 (4.0-11.0)
[2017-02-19 22:58] LABS: ANION GAP 9 MEQ/L (5-15); AST (GOT) 18 U/L (15-37); BICARBONATE 24.2 MEQ/L (21.0-32.0); BLOOD UREA NITROGEN 13 MG/DL (7-18); CHLORIDE 108 MEQ/L (98-107); GLOMERULAR FILTRATION RATE 98 ML/MIN (>89); POTASSIUM 3.7 MEQ/L (3.5-5.1); SODIUM (NA) 141 MEQ/L (136-145)
[2017-02-19 23:00] LABS: ALT (GPT) 23 U/L (12-78)
[2017-02-19 23:02] LABS: ALKALINE PHOSPHATASE 96 U/L (45-117); TOTAL BILIRUBIN ADULT 1.9 MG/DL (0.2-1.0)
[2017-02-20] VITALS: BP 113/66; PULSE 58; RESP 19; TEMP 97.7; O2SAT 94
[2017-02-20 02:00] VITALS: PULSE 57
[2017-02-20 04:00] VITALS: BP 130/60; PULSE 51; RESP 24; TEMP 97.6; O2SAT 97
[2017-02-20] MEDS: CHLORHEXIDINE GLUCONATE 2 % 1 PACK (2 CLOTHS) TOP SCH (04:58)
[2017-02-20 06:00] VITALS: PULSE 50
--- NOTE | 2017-02-20 07:55 | HHI.PR ---
Subjective Remarks eager for d/c neuro sx's resolved Objective Vitals heart reg lung cta abd s/nt ext no edema Vital Signs Date Time Temp Pulse Resp B/P Pulse Ox O2 Delivery O2 Flow Rate FiO2 02/20/17 07:00 96 Room Air 02/20/17 06:00 50 02/20/17 04:00 97.6 51 24 130/60 97 02/20/17 04:00 51 02/20/17 02:00 57 02/20/17 00:00 97.7 58 19 113/66 94 02/20/17 00:00 58 02/19/17 22:00 59 02/19/17 21:32 24 02/19/17 20:50 97 02/19/17 20:00 98.5 60 24 148/68 97 02/19/17 20:00 60 02/19/17 19:00 Room Air 02/19/17 18:00 60 02/19/17 16:00 98.2 60 24 141/74 94 02/19/17 16:00 60 02/19/17 14:00 54 02/19/17 12:00 57 02/19/17 12:00 98.0 57 26 137/68 94 02/19/17 10:00 56 02/19/17 08:03 96 21 02/19/17 08:00 97.8 65 20 146/74 96 02/19/17 08:00 65 02/19/17 02/19/17 02/20/17 15:00 23:00 07:00 Intake Total 1745 ml 240 ml Output Total 1550 ml 1175 ml 500 ml Balance 195 ml -1175 ml -260 ml Intake Oral 1200 ml 240 ml IV Total 545 ml Output Urine Total 1550 ml 1175 ml 500 ml # Bowel Movements 0 0 0 Result Diagram: 02/19/17220402/19/17 2205 A/P Problem List: (1) CVA (cerebral vascular accident) Status: Acute Plan: Pt presented with acute cva and left ue/le deficits s/p tpa and resolution of sx's felt to be embolic cva from afib mri/a negative for acute cva or hemorrhage will d/c on statin and eliquis. neuro f/u d/c william and ambulate..notify neuro before d/c Problem Qualifiers (1) CVA (cerebral vascular accident): Qualified Code: I63.49 - Cerebrovascular accident (CVA) due to embolism of other cerebral artery Bennie London MD Feb 20, 2017 07:55
[2017-02-20] MEDS ORDERED: ATOR20TA15 PO (07:57)
[2017-02-20] MEDS ORDERED: APIX5TAB PO (07:57)
--- NOTE | 2017-02-20 07:57 | HHI.DCPOC ---
Discharge Care Plan Diagnosis: (1) CVA (cerebral vascular accident) (2) Chronic a-fib Goals to Promote Your Health * To prevent worsening of your condition and complications * To maintain your health at the optimal level Directions to Meet Your Goals Take your medications as prescribed Follow your dietary instruction Follow activity as directed Keep your appointments as scheduled Take your immunizations and boosters as scheduled If your symptoms worsen call your PCP, if no PCP go to Urgent Care Center or Emergency Room Smoking is Dangerous to Your Health. Avoid second hand smoke Call the 24-hour hour crisis hotline for domestic abuse at Bennie London MD Feb 20, 2017 07:57
[2017-02-20 08:00] VITALS: BP 153/79; PULSE 58; PULSE 64; RESP 20; TEMP 97.7; O2SAT 95
[2017-02-20] MEDS: FAMOTIDINE 20 MG/2 ML VIAL IV PUSH SCH (08:27)
[2017-02-20] MEDS: SODIUM CHLORIDE 0.9% FLUSH 10 ML FLUSH SCH (08:27)
[2017-02-20] MEDS: DOCUSATE SODIUM 50 MG/SENNA 8.6 MG TAB PO SCH (08:27)
[2017-02-20 08:49] VITALS: O2SAT 94
[2017-02-20] MEDS ORDERED: ATORVASTATIN 20 MG TAB PO SCH (09:00)
== END 2017-02-20 09:37 | disposition home or self-care (01) | DRG 63 ==
LOC: PHED 16:50 → PHEDA 18:40 → N03B 22:24
PROVIDERS: ADMIT Internal Medicine Critical Care Medicine; ATTEND Internal Medicine Critical Care Medicine
DX: I63.442 Cerebral infarction due to embolism of left cerebellar artery (principal); I48.2 Chronic atrial fibrillation; J44.9 Chronic obstructive pulmonary disease, unspecified; R29.706 NIHSS score 6; N40.0 Benign prostatic hyperplasia without lower urinary tract symptoms; Z79.82 Long term (current) use of aspirin; E78.5 Hyperlipidemia, unspecified; R27.8 Other lack of coordination
CPT/HCPCS: 70450; 70544; 70553; 80048; 80053; 80061; 80307; 81001; 82550; 82948; 83735; 84100; 84484; 85025; 85384; 85610; 85730; 86850; 86900; 86901; 87641; 93005; 93306; 93880; 96360; 96374; 99292; A9579; J2997; J7030

== ENCOUNTER 2017-11-01 17:04 | Emergency (ER) | payer MEDICARE ==
[~2017-11-01] VITALS: Ht 177.8 cm; Wt 104.5 kg
[~2017-11-01 17:04] MED LIST changes: +APIX5TAB PO; +ATOR20TA15 PO; +FURO20TA PO; -NORC10TA2 PO; -RIVA10 PO; +VENTAER INH; -Z.0.WALKERFRONT
[2017-11-01 17:33] VITALS: BP 180/81; PULSE 104; RESP 22; TEMP 99.5; O2SAT 92
[2017-11-01 18:27] LABS: AUTOMATED NEUTROPHIL # 9.8 TH/MM3 (1.8-7.7); BASOPHIL % 0.3 % (0.0-2.0); EOSINOPHIL % 0.2 % (0.0-4.0); HEMATOCRIT 55.1 % (39.0-51.0); HEMOGLOBIN 18.6 GM/DL (13.0-17.0); LYMPH % 3.8 % (9.0-44.0); LYMPHOCYTE # 0.4 TH/MM3 (1.0-4.8); MEAN CELL VOLUME 93.8 FL (80.0-100.0); MEAN CORPUSCULAR HEMOGLOBIN 31.6 PG (27.0-34.0); MEAN CORPUSCULAR HGB CONC 33.7 % (32.0-36.0); MEAN PLATELET VOLUME 9.3 FL (7.0-11.0); MONO % 11.3 % (0.0-8.0); MONOCYTE # 1.3 TH/MM3 (0-0.9); NEUT % 84.4 % (16.0-70.0); PLATELET COUNT 140 TH/MM3 (150-450); RED BLOOD COUNT 5.87 MIL/MM3 (4.50-5.90); WHITE BLOOD COUNT 11.6 TH/MM3 (4.0-11.0)
[2017-11-01 18:40] LABS: INTERNATIONAL NORMALIZED RATIO 1.1 RATIO; PROTHROMBIN TIME - PATIENT 11.2 SEC (9.8-11.6)
[2017-11-01 18:45] LABS: BICARBONATE 24.6 MEQ/L (21.0-32.0); BLOOD UREA NITROGEN 10 MG/DL (7-18); CALCIUM 8.6 MG/DL (8.5-10.1); CHLORIDE 102 MEQ/L (98-107); CREATININE 0.94 MG/DL (0.60-1.30); GLOMERULAR FILTRATION RATE 78 ML/MIN (>89); GLUCOSE,RANDOM 120 MG/DL (74-106); MAGNESIUM 1.8 MG/DL (1.5-2.5); SODIUM (NA) 136 MEQ/L (136-145)
[2017-11-01 18:48] LABS: TROPONIN I 0.03 NG/ML (0.02-0.05)
--- NOTE | 2017-11-01 19:12 | PD ---
Physical Exam Date Seen by Provider: Nov 01, 2017 Time Seen by Provider: 18:44 Narrative 77 year old male presents to the emergency department for evaluation of cough and SOB as well as nausea. Patient was seen by provider at [facility] and was sent here. According to note by [facility], patient is + for influenza B and pneumonia to bases on chest x-ray. No improvement after nebs in clinic. Patient denies any pain. Data Data Last Documented VS Vital Signs Date Time Temp Pulse Resp B/P (MAP) Pulse Ox O2 Delivery O2 Flow Rate FiO2 11/01/17 17:33 99.5 104 22 180/81 (114) 92 Orders Orders Complete Blood Count With Diff (11/01/17 17:36) Basic Metabolic Panel (Bmp) (11/01/17 17:36) B-Type Natriuretic Peptide (11/01/17 17:36) Act Partial Throm Time (Ptt) (11/01/17 17:36) Prothrombin Time / Inr (Pt) (11/01/17 17:36) Magnesium (Mg) (11/01/17 17:36) Ckmb (Isoenzyme) Profile (11/01/17 17:36) Troponin I (11/01/17 17:36) Electrocardiogram (11/01/17 17:36) CKMB (11/01/17 18:10) CKMB% (11/01/17 18:10) Labs Laboratory Tests Test 11/01/17 18:10 White Blood Count 11.6 TH/MM3 Red Blood Count 5.87 MIL/MM3 Hemoglobin 18.6 GM/DL Hematocrit 55.1 % Mean Corpuscular Volume 93.8 FL Mean Corpuscular Hemoglobin 31.6 PG Mean Corpuscular Hemoglobin Concent 33.7 % Red Cell Distribution Width 14.0 % Platelet Count 140 TH/MM3 Mean Platelet Volume 9.3 FL Neutrophils (%) (Auto) 84.4 % Lymphocytes (%) (Auto) 3.8 % Monocytes (%) (Auto) 11.3 % Eosinophils (%) (Auto) 0.2 % Basophils (%) (Auto) 0.3 % Neutrophils # (Auto) 9.8 TH/MM3 Lymphocytes # (Auto) 0.4 TH/MM3 Monocytes # (Auto) 1.3 TH/MM3 Eosinophils # (Auto) 0.0 TH/MM3 Basophils # (Auto) 0.0 TH/MM3 CBC Comment DIFF FINAL Differential Comment Prothrombin Time 11.2 SEC Prothromb Time International Ratio 1.1 RATIO Activated Partial Thromboplast Time 26.4 SEC Blood Urea Nitrogen 10 MG/DL Creatinine 0.94 MG/DL Random Glucose 120 MG/DL Calcium Level 8.6 MG/DL Magnesium Level 1.8 MG/DL Sodium Level 136 MEQ/L Potassium Level 4.0 MEQ/L Chloride Level 102 MEQ/L Carbon Dioxide Level 24.6 MEQ/L Anion Gap 9 MEQ/L Estimat Glomerular Filtration Rate 78 ML/MIN Total Creatine Kinase 280 U/L Creatine Kinase MB 3.8 NG/ML Troponin I 0.03 NG/ML MDM Supervised Visit with [facility]: No Narrative Course 77 year old male presents to the emergency department for SOB, + flu and pneumonia. Work up was initiated in triage. The patient left AMA before he could be moved to a medical bed. Diagnosis Primary Impression: Left against medical advice Disposition: 07 AGAINST MEDICAL ADVICE Margarita Go Nov 01, 2017 19:12
--- NOTE | 2017-11-02 20:08 | EKG ---
Date Performed: 11/01/2017 Time Performed: 18:03:04 PTAGE: 77 years EKG: ATRIAL FIBRILLATION RIGHT BUNDLE BRANCH BLOCK ABNORMAL ECG PREVIOUS TRACING : 02/18/2017 17.41 Since the previous tracing, no significant change noted DOCTOR: Cole Gutierrez Interpretating Date/Time 11/02/2017 20:06:11
== END 2017-11-01 18:44 | disposition left against medical advice (07) ==
LOC: NED 17:04
DX: R06.02 Shortness of breath (principal); J10.00 Influenza due to other identified influenza virus with unspecified type of pneumonia; R94.31 Abnormal electrocardiogram [ECG] [EKG]; Z53.21 Procedure and treatment not carried out due to patient leaving prior to being seen by health care provider
CPT/HCPCS: 80048; 82550; 82552; 83735; 83880; 84484; 85025; 85610; 85730; 93005; 99284